=== PATIENT | male | born 1940 | race Caucasian/White ===

== ENCOUNTER → 2016-09-08 | Outpatient (CLI) | payer OTHER ==
--- NOTE | 2016-09-08 16:04 | US ---
Ultrasound and Venous Duplex Doppler Study of Left Lower Extremity Clinical History: 76-year-old male with left leg pain and a palpable area of discomfort noted for 8 d ays. The patient is currently anticoagulated, and sustained trauma to the calf. ICD 10 Diagnostic Code: M79.89. Technique: A high frequency transducer was used for imaging and Doppler study of the veins of the le ft lower extremity. Pulsed Doppler and color Doppler were utilized, along with various maneuvers to assess flow in the veins. Cursory evaluation of the contralateral common femoral vein was obtained f or comparison purposes. A cine clip was acquired through the posterior proximal calf over the area of palpable pain. Comparison Study: None. Findings: The deep veins of the left lower extremity are normally compressible between the groin and the upper calf, and have normal Doppler waveforms. There is no sonographic evidence of deep venous t hrombosis. The greater saphenous vein is compressible. The popliteal fossa is unremarkable. At the le ousmane of the patient's pain, there is a complex hypoechoic collection measuring 4.0 x 2.1 x 4.2 cm seen within the left gastrocnemius muscle, most consistent with a hematoma. There is no intrinsic vascula r flow. Clinical correlation and follow-up are suggested. Impression: 1. There is no sonographic evidence of deep or superficial vein thrombosis in the left lower extremit y. 2. There is a 4.2 cm complex hypoechoic collection within the left gastrocnemius muscle, most consist ent with a hematoma. As requested, results were called to Dr. Julienne Byers at 4:00 p.m. on September 08, 2016.
== END ==
LOC: FIMAGING 15:00
DX: M79.605 Pain in left leg (principal); M79.89 Other specified soft tissue disorders